=== PATIENT | female | born 1985 | race African-American/Black ===

== ENCOUNTER 2016-06-29 01:42 | Inpatient (IN) | payer OTHER ==
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
--- NOTE | ~2016-06-29 | HP ---
Unit #: [id number] #: [id number] Patient: KELLEN ARANDA [id number] [place] [address] [id number] MR#: [id number] NAME: KELLEN ARANDA ROOM: P183 Age: 31 Sex: F Admission Date: 06/29/2016 : 1985 Attending Physician: Cal Hair M.D. Admitting Physician: Cal Hair M.D. Primary Care Physician: Primary Care Physician No HISTORY AND PHYSICAL HISTORY OF PRESENT ILLNESS Kellen is a 31 year old admitted to [facility] because of her drug use which includes pills, cocaine and alcohol. PAST MEDICAL HISTORY 1. Long history of alcohol abuse. 2. History of illicit substance abuse which includes pain pills and cocaine. 3. High blood pressure. 4. Asthma. 5. Morbid obesity. 6. History of cervical dysplasia. PAST SURGICAL HISTORY 1. Cholecystectomy 2. Tubal ligation 3. Cervical conization ALLERGIES No known drug allergies. SOCIAL HISTORY Smokes one pack per day. Denies alcohol and admits to illicit drug use. FAMILY HISTORY Medically noncontributory. REVIEW OF SYSTEMS CONSTITUTIONAL: No fever or chills. HEENT: Denies any sore throat, ear pain or runny nose. CARDIOVASCULAR: Denies chest pain, irregular heart rhythm or palpitations. CHEST: Denies shortness of breath or cough. No hemoptysis. GASTROINTESTINAL: Denies nausea, vomiting, diarrhea or chronic constipation. ENDOCRINE: Denies history of increased thirst or urination. No recent significant weight loss or gain. GENITOURINARY: Denies dysuria, frequency, or hematuria. SKIN: Denies any rashes. HEMATOLOGIC: Denies history of increased bleeding or bruising. MUSCULOSKELETAL: Denies any hot, swollen joints. No generalized muscle pain. NEUROLOGIC: Denies problems with vision or speech. No frequent, severe Unit #: [id number] #: [id number] Patient: KELLEN ARANDA headaches. No numbness, tingling or weakness in any extremities. Denies loss of bladder or bowel control. CURRENT MEDICATIONS 1. Detox protocol 2. Celexa 20 mg q day PHYSICAL EXAMINATION GENERAL: Alert, well-nourished, in no apparent distress. VITAL SIGNS: Blood pressure 144/88, heart rate 80, respirations 16, temperature 98.6. WEIGHT: 230 pounds. HEIGHT: 5'8". SKIN: Warm and dry without rash or lesion. HEENT: Normocephalic. TMs not viewed. Oral and nasal passages clear. Conjunctivae clear. Pupils equal, round and reactive to light and accommodation. Extraocular movements intact. NECK: Supple without lymphadenopathy or thyromegaly. HEART: Regular rate and rhythm without murmur. LUNGS: Clear. ABDOMEN: Soft, nontender. : Not done. EXTREMITIES: No evidence of cyanosis, clubbing or edema. Moves all extremities without focal deficit. NEUROLOGICAL: Grossly within normal limits. Cranial Nerves: II: Visual nolasco are intact. III, IV AND : Extraocular movements are intact. Pupils are equal, round and reactive to light. V: Facial sensation is grossly normal. VII: Facial movements and expression are normal. VIII: Auditory acuity grossly intact. IX, X: Uvula is midline. Phonation is normal. XI: Patient shrugs shoulders and turns head normally. XII: Tongue protrudes in the midline. Sensory and Motor Function: Sensory and motor sensation is grossly normal. Motor: moves all extremities well. Coordination: Gait is normal. Deep Tendon Reflexes: Intact. IMPRESSION Psychiatric admission RECOMMENDATIONS PSYCHIATRIC: Per psychiatrist. MEDICAL: I see no contraindications to participating in facility's activities. MEDICAL PROGNOSIS Good. MEDICAL CONDITION Stable. Dictated by... Cristin Gao P.A.-C. for Inder Stafford M.D. Unit #: [id number] #: [id number] Patient: KELLEN ARANDA TINO/sherly TD: 06/30/2016 03:32 JOB #: [id number] HISTORY AND PHYSICAL Page 1 of 1 X Cristin Gao HISTORY AND PHYSICAL
--- NOTE | ~2016-06-29 | DS ---
Unit #: [id number] #: [id number] Patient: GABRIELLE ARANDA [id number] [facility] [address] [place] [address] [id number] I MR#: [id number] NAME: GABRIELLE ARANDA ROOM: 83 Age: 31 Sex: F Admission Date: 06/29/2016 : 1985 Discharge Date: 07/06/2016 Attending Physician: Cal Hair M.D. Primary Care Physician: Primary Care Physician No DISCHARGE SUMMARY REASON FOR ADMISSION Ms. Foreman is a 31-year-old woman, who has increasing problems with chemical dependence including alcohol and cocaine use. She had suicidal ideation with a plan to overdose on pills and was admitted for stabilization. LABORATORY DATA Please see hospital chart. HOSPITAL COURSE The patient was admitted and placed on suicide precautions as well as the alcohol detox protocol. She requested an "anxiety pill," but was given Seroquel up to 100 mg t.i.d. for anxiety and mood stability, reporting a history of bipolar disorder. She had no significant adverse effects from her detox, and was able to contract for safety on the date of discharge. DISCHARGE DIAGNOSES AXIS I: Major depression versus bipolar depressed, alcohol abuse, cocaine abuse. AXIS II: No diagnosis. AXIS III: History of asthma. AXIS IV: AXIS V: DISCHARGE INSTRUCTIONS The patient is to follow up with [facility]. DISCHARGE MEDICATIONS 1. Seroquel 100 mg t.i.d. for mood stability. 2. Celexa 20 mg daily for depression. 3. Trazodone 100 mg at bedtime as needed for insomnia. CONDITION AT DISCHARGE Improved. PROGNOSIS Fair to good. DIET AND ACTIVITY Per primary care doctor. Unit #: [id number] #: [id number] Patient: GABRIELLE ARANDA Dictated by... Cal Hair M.D. [facility]/diol TD: 09/10/2016 16:12 JOB #: [id number] DISCHARGE SUMMARY Page 1 of 1 X Cal Hair MD X DISCHARGE SUMMARY
--- NOTE | ~2016-06-29 | PN ---
Unit #: [id number] #: [id number] Patient: KELLEN ARANDA [id number] [facility] [address] [place] [address] [id number] I MR#: [id number] NAME: KELLEN ARANDA ROOM: [facility] Age: 31 Sex: F Admission Date: 06/29/2016 : 1985 Attending Physician: Cal Hair M.D. Admitting Physician: Cal Hair M.D. Primary Care Physician: Primary Care Physician Reena VILA PROGRESS NOTES DATE 07/04/2016 DISCUSSION Kellen continues to complain of mild anxiety and wants "an anxiety pill." I declined to provide this, given her history of chemical dependence, and suggest we increase her Seroquel which she is amenable to. She is alert and oriented, dressing and grooming are improved and her mood is more stable and less labile. ASSESSMENT Bipolar depressed. PLAN We will add Seroquel 100 mg three times a day and continue current treatment plan Dictated by... Cal Hair M.D. MELBA/teo TD: 07/06/2016 06:59 JOB #: [id number] [facility] PROGRESS NOTES Page 1 of 1 X Cal Hair MD X PROGRESS NOTE
[~2016-06-29 01:42] MED LIST: CIPRO PO; DOXYCYCLINE PO; EC-NAPROSYN500 MG PO; FLEXERIL PO; IBUPROFEN PO; KEFLEX PO; PHENERGAN PO; PHENERGAN PR; PRILOSEC PO; TORADOL10 MG PO; VICODIN 5/500 T1 TAB PO
[2016-06-29 09:39] LABS: BASOPHIL% 0.5 % (0-2.5); EOSINOPHIL% 0.3 % (0.0-7.0); HEMATOCRIT 36.2 % (35.0-45.0); HEMOGLOBIN 11.3 gm/dL (12.0-16.0); LYMPHOCYTE# 2.1 X10e3 (1.0-3.5); LYMPHOCYTE% 29.2 % (17.0-45.0); MEAN CELL VOLUME 84.4 FL (83-96); MEAN CORPUSCULAR HEMOGLOBIN 26.3 PG (28-34); MEAN CORPUSCULAR HGB CONC 31.1 g/dL (30-36); MEAN PLATELET VOLUME 9.3 FL (6.5-11.5); MONOCYTE# 0.6 X10e3 (0-1.0); MONOCYTE% 8.1 % (3.0-12.0); NEUTROPHIL# 4.5 X10e3 (1.5-7.1); NEUTROPHIL% 61.9 % (40-75); PLATELET COUNT 276 X10e3 (140-420); RED BLOOD COUNT 4.28 X10e (3.90-5.30); RED CELL DISTRIBUTION WIDTH 17.1 % (11.0-15.5); WHITE BLOOD COUNT 7.2 X10e3 (4.0-10.5)
[2016-06-29 09:47] LABS: DIFF IND NO
[2016-06-29 10:18] LABS: ALBUMIN SERUM 3.7 g/dL (3.5-5.0); BILIRUBIN,TOTAL 0.5 mg/dL (0.2-2.0); BUN/CREATININE RATIO 13.75; CALCIUM SERUM 9.4 mg/dL (8.4-10.2); CREATININE SERUM 0.8 mg/dL (0.6-1.4); GLOM FILT RATE Estimated 112.4 mL/min (>60); POTASSIUM 3.9 mmol/L (3.5-5.1); PROTEIN TOTAL SERUM 6.4 g/dL (6.0-8.3)
[2016-06-30 10:03] LABS: AMPHETAMINE NEG (NEG); BARBITURATES NEG (NEG); BENZODIAZEPINES NEG (NEG); COCAINE POS (NEG); MARIJUANA NEG (NEG); OPIATES NEG (NEG); TRICYCLIC ANTIDEPRESSANTS NEG (NEG); U METHADONE NEG (NEG)
== END 2016-07-06 11:05 | disposition home or self-care (01) | DRG 885 ==
LOC: P1E 01:42
PROVIDERS: Psychiatry & Neurology Psychiatry
PROC: HZ2ZZZZ Detoxification Services for Substance Abuse Treatment (ICD-10-PCS; principal; 2016-06-29)
DX: F33.9 Major depressive disorder, recurrent, unspecified (principal); E66.01 Morbid (severe) obesity due to excess calories; R45.851 Suicidal ideations; F10.10 Alcohol abuse, uncomplicated; F14.10 Cocaine abuse, uncomplicated; J45.909 Unspecified asthma, uncomplicated; I10 Essential (primary) hypertension; Z90.49 Acquired absence of other specified parts of digestive tract; Z98.51 Tubal ligation status; F17.210 Nicotine dependence, cigarettes, uncomplicated
CPT/HCPCS: 80053; 80307; 82947; 84703; 85025